=== PATIENT | male | born 1945 | race American Indian/Alaskan Native ===

== ENCOUNTER 2018-06-14 09:11 | Emergency (ER) | payer OTHER, MEDICARE ==
[2018-06-14 09:30] VITALS: BP 190/100
[2018-06-14] MEDS ORDERED: TORADOL IM ONE (10:34)
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
== END 2018-06-14 11:23 | disposition home or self-care (01) ==
LOC: ED 09:11
DX: M25.551 Pain in right hip (principal); I10 Essential (primary) hypertension; V89.2XXA Person injured in unspecified motor-vehicle accident, traffic, initial encounter; Y93.89 Activity, other specified; Y92.410 Unspecified street and highway as the place of occurrence of the external cause; Y99.8 Other external cause status
CPT/HCPCS: 96372; 99282; J1885